=== PATIENT | male | born 1980 | race Caucasian/White ===

== ENCOUNTER 2019-05-16 12:04 | Emergency (ER) | payer OTHER ==
[2019-05-16 12:27] VITALS: BP 122/84
--- NOTE | 2019-05-16 12:37 | UC ---
Lower Extremity/Ankle HPI - HPI Summary HPI Summary: 39 y/o male presents to the urgent care c/o right ankle pain s/p twisting it working today. Pt states he has had screws, tendon repair, and major surgery to this ankle before about 5 years ago w/ DR Patel at [facility]. Pt is a mailman. Pain now is 6/10 localized at the lateral side, burning in character and w/o any radiation and he is limping. He has not taken any medication to alleviate pain. Pt denies numbness or tingling sensation over the the RT ankle or foot. Pt denies fever, SOB, calf pain, abdominal pain, N/V/d. - History of Current Complaint Chief Complaint: UCLowerExtremity Stated Complaint: ANKLE INJURY Time Seen by Provider: 05/16/19 12:35 Hx Obtained From: Patient Onset/Duration: Sudden Onset - twisted his ankle Severity Initially: Moderate Severity Currently: Moderate Pain Intensity: 6 Pain Scale Used: 0-10 Numeric Aggravating Factor(s): Ambulation Alleviating Factor(s): Rest, Elevation, Ice Able to Bear Weight: Yes - Risk Factors Gout Risk Factors: Negative DVT Risk Factors: Negative Septic Arthritis Risk Factor: Negative - Allergies/Home Medications Allergies/Adverse Reactions: Allergies Allergy/AdvReac Type Severity Reaction Status Date / Time No Known Allergies Allergy Verified 05/16/19 12:28 Home Medications: Home Medications Cetirizine HCl [Zyrtec] 1 tab PO DAILY PRN 05/16/19 [History Confirmed 05/16/19] Lansoprazole 1 tab PO DAILY 05/16/19 [History Confirmed 05/16/19] Multivitamin [Multivitamins] 1 tab PO DAILY 05/16/19 [History Confirmed 05/16/19 ] [place]-3 Fatty Acids/Fish Oil [Fish Oil 1,000 mg Softgel] 1 tab PO DAILY [History Confirmed 05/16/19] PMH/Surg Hx/FS Hx/Imm Hx Previously Healthy: Yes Other Respiratory History: seasonal allergies GI/ History: Gastroesophageal Reflux - Surgical History Surgical History: Yes Surgery Procedure, Year, and Place: right ankle repair - tendon repair, plates. right shoulder repair - rotator cuff tendon and bicep tendon - Family History Known Family History: Positive: None - Pt denies FMHX - Social History Occupation: Employed Full-time Lives: With Family Alcohol Use: Rare Substance Use Type: None Smoking Status (MU): Current Some Day Smoker Amount Used/How Often: 1 cigar rarely Household Exposure Type: Cigars Review of Systems All Other Systems Reviewed And Are Negative: Yes Constitutional: Positive: Negative Skin: Positive: Negative Eyes: Positive: Negative ENT: Positive: Negative Respiratory: Positive: Negative Cardiovascular: Positive: Negative Gastrointestinal: Positive: Negative Genitourinary: Positive: Negative Motor: Positive: Negative Neurovascular: Positive: Negative Musculoskeletal: Positive: Decreased ROM - RT ankle, Other: - RT ankle pain Neurological: Positive: Negative Psychological: Positive: Negative Is Patient Immunocompromised?: No Physical Exam - Summary Physical Exam Summary: Vital Signs Reviewed: Yes General: well developed, well nourished male, sitting in the examining table w/ o any apparent distress Eyes: Positive: Conjunctiva Clear - PERRLA, EOMI, ENT: Positive: Normal ENT inspection, Hearing grossly normal, Pharynx normal, TMs normal Neck: Positive: Supple, Nontender, No Lymphadenopathy Respiratory: Positive: Chest non-tender, Lungs clear, Normal breath sounds, No respiratory distress Cardiovascular: Positive: RRR, No Murmur, Pulses Normal, Brisk Capillary Refill Abdomen Description: Positive: Nontender, No Organomegaly, Soft. Negative: CVA Tenderness (R), CVA Tenderness (L) Bowel Sounds: Positive: Present Musculoskeletal: - Ankle: Pt is able to bear weight and ambulate w/ limping. The R ankle is without obvious asymmetry or deformity when compared to the L ankle. Decreased ROM due to pain. Mild soft tissue swelling at the lateral malleolus, with tenderness to palpation. No ecchymosis or bruising observed. scar over the laterals malleolus. NO tenderness to palpation over the medial malleolus , no swelling observed. Talar tilt test is negative for ligament laxity to valgus or varus stress. Negative anterior drawer. Peroneal nerve is intact with strong eversion and plantar flexion. Positive sensation over the Rt foot and Rt ankle, positive pulses, capillary refill intact Neurological Exam: Normal Psychological Exam: Normal Skin: warm and dry Triage Information Reviewed: Yes Vital Signs: Initial Vital Signs Temp 98.5 F 05/16/19 12:23 Pulse 73 05/16/19 12:23 Resp 18 05/16/19 12:23 BP 122/84 05/16/19 12:23 Pulse Ox 98 05/16/19 12:23 Lower Extremity Course/Dx - Course Course Of Treatment: 39 y/o male presents to the urgent care c/o right ankle pain s/p twisting it working today. Pt states he has had screws, tendon repair, and major surgery to this ankle before about 5 years ago w/ DR Patel at [facility]. Pt is a mailman. Pain now is 6/10 localized at the lateral side, burning in character and w/o any radiation and he is limping. He has not taken any medication to alleviate pain. Pt denies numbness or tingling sensation over the the RT ankle or foot. Pt denies fever, SOB, calf pain, abdominal pain, N/V/d. Hx obtained. Rt ankle X- ray ordered, REPORT AND IMPRESSION: #. Negative for acute fracture, osteochondral lesion, or malalignment. #. Mild osteophytosis at the talocrural joint without significant joint space narrowing. #. Surgical anchors at the lateral malleolus likely reflect previous lateral supporting ligament reconstruction. #. Old avulsion fragments or accessory ossicles at the medial malleolus. #. Only minimal nonfocal soft tissue swelling.. Pt most likely with a RT ankle Sprain. Pt immobilized with EMILY bandage and advised to use his CAM boot and crutched he has at home to keep his ankle immobilized and avoid weight bearing, Rx Ibuprofen PO to decrease swelling and pain. Pt advised RICE, take Ibuprofen PO for pain and to f/u with orthopedic DR De La Trore or Sports Medicine for further evaluation and treatment due to his previous surgery. Pt understood and agreed and left the clinic ambulating. - Differential Dx/Diagnosis Differential Diagnosis/HQI/PQRI: Arthritis, Contusion, Dislocation, Fracture ( Open), Sprain, Strain, Tendonitis, Other - tendon tear Provider Diagnosis: Acute right ankle pain, Right ankle sprain Discharge - Sign-Out/Discharge Documenting (check all that apply): Patient Departure - D/C home All imaging exams completed and their final reports reviewed: Yes - Discharge Plan Condition: Stable Disposition: HOME Prescriptions: Ibuprofen TAB* [Motrin TAB* 800 MG] 800 mg PO Q6H PRN #30 tab PRN Reason: Pain Patient Education Materials: Ankle Sprain (ED) Forms: *Work Release Referrals: Emilia Webb PA [Primary Care Provider] - 1 Week [facility] [Provider Group] - 2 Days Zeynep De La Torre MD [Medical Doctor] - 2 Days Additional Instructions: 1-Please take Ibuprofen PO q6-8hrs prn after meals as directed to alleviate pain and swelling. 2-Please apply ice, keep your ankle immobilized with the EMILY-bandage and the CAM boot you have at home. use the crutches you have at home to avoid weight bearing. Elevate your ankle to decrease swelling, avoid strenuosu exercises or standing for long periods of time. 3- Please f/u with Orthopedic DR De La Torre or [facility] Medic[facility] in 2-3 days for further evaluation and treatment on your symptoms. - Billing Disposition and Condition Condition: STABLE Disposition: Home
== END 2019-05-16 13:40 | disposition home or self-care (01) ==
LOC: UCEAST 12:04
DX: S93.401A Sprain of unspecified ligament of right ankle, initial encounter (principal); X50.0XXA Overexertion from strenuous movement or load, initial encounter; Y92.89 Other specified places as the place of occurrence of the external cause; K21.9 Gastro-esophageal reflux disease without esophagitis; F17.210 Nicotine dependence, cigarettes, uncomplicated
CPT/HCPCS: 99202; G0463